=== PATIENT | male | born 1955 ===

== ENCOUNTER 2018-04-12 15:24 | Inpatient (IN) | payer MEDICARE, MEDICAID ==
[~2018-04-12] VITALS: Ht 185.4 cm; Wt 90.3 kg
--- NOTE | 2018-04-12 15:59 | NUR ---
"ER HOLD" for now until further notice per nursing supervisor agency appointments. Per Ellie, [facility] is unable to accept this patient 2/2 [facility] just had 2 recent admissions from ER.
--- NOTE | 2018-04-12 16:40 | NUR ---
CALLED FOR BED AND REPORT. NOT AVAILABLE AT THIS TIME PER [facility] NURSE.
--- NOTE | 2018-04-12 17:38 | NUR ---
CALLED TO GIVE REPORT NURSE NOT AVAILABLE TO TAKE REPORT AT THIS TIME.
--- NOTE | 2018-04-12 17:58 | NUR ---
Pt. admitted to [facility] , under care of Dr. BAJWA Belongs List completed
--- NOTE | 2018-04-12 18:45 | NUR ---
Note radha in ED - 04/12/18 at 1849 by [email or web address] TAKEN BY KUNAL ESPINOSA [facility] [place]. NOTED PATYIENT NOT IN ANY DISTRESS.
--- NOTE | 2018-04-12 18:45 | NUR ---
TAKEN BY KUANL TO U. NOTED PATIENT NOT IN ANY DISTRESS.
[2018-04-12] MEDS ORDERED: MAGNESIUM HYDROXIDE 30 ML LIQUID UDC PO PRN (19:45)
[2018-04-12] MEDS ORDERED: MAG HYDROX/AL HYDROX/SIMETH 30 ML LIQUID UDC PO PRN (19:45)
[2018-04-12 21:10] VITALS: BP 110/47
--- NOTE | 2018-04-12 22:00 | NUR ---
received to care, at 1845, from the emergency room, on a 72 hour hold, for danger to self/others, a transfer, from [facility]. according to the hold, he is allegedly homeless. a bystander on the street called 911, after he was "not acting right". 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 per the chart, he tested positive for methamphetamines, at [facility]. upon arrival, he was asleep, but easy to awaken. he refused body check, physical assessment, or any interview questions, stating, leave me alone- i want to sleep. as of 2199, he remains asleep. no distress noted. will continue to monitor closely. Addendum: 04/13/18 at 0204 by SUZANNE GERARD LVN pt denied SI, or desire to harm self. when asked to contract for safety, he stated, "LEAVE ME ALONE. I WANT TO SLEEP"
--- NOTE | 2018-04-12 22:23 | NUR ---
Patient is a 63 yr old male admitted to Mental Health Unit from [facility] on a 5150 for Danger to self and Danger to others after a psychiatric evaluation was requested when patient presented with aggressive behavior, according to the ER physician reported the patient was displaying flight of ideas as well as delusions of grandeur. Making statements ie: I have 500 million dollars and my father owns [employer]. Patient was also making statements according to medical records threatening to kill someone. Hold began 04/12/18 at 1133 a.m. Patient has a history of schizo-affective disorder no medical history reported and patient did not report home medications or allergies. Patient does not list any relatives to contact. Patient is a smoker according to medical record. Dr. Davis and Dr. Arias aware of admission orders obtained and carried out. On assessment patient agreed to contraband however refused physical assessment and admitting paper work. Patient uncooperative at this time, requested from staff to be allowed to sleep. Patient is appears to be oriented to name when alert however unable to assess further. Patient is unable to deny suicidal ideation or homicidal ideation at this time, will continue to assess as well as monitor for patient, peer, and staff safety.
--- NOTE | 2018-04-12 23:00 | NUR ---
received to care, at start of shift, appearing disheveled, wearing paper scrubs, asleep, but easy to awaken. refused physical assessment, body check, interview, or any questions. only agreed to be checked for contraband, stating, "leave me alone- i want to sleep". as of 2299. he remains asleep. no distress noted. will continue to monitor closely.
--- NOTE | 2018-04-12 23:57 | NUR ---
PATIENT ASLEEP UNABLE TO STATE Addendum: 04/12/18 at 1607 by ABEL JIMENEZ RN Amended: Links added.
--- NOTE | 2018-04-13 06:00 | NUR ---
slept 10.25 hours, total. continues to sleep, but easy to awaken. continues to decline giving any information, stating he wants to sleep. no distress noted.
[2018-04-13 07:01] LABS: CREATININE 0.6 mg/dL (0.6-1.3)
[2018-04-13 07:30] VITALS: BP 96/49
--- NOTE | 2018-04-13 11:27 | NUR ---
RECEIVED Pt IN BED, SLEEPING BUT EASILY AROUSED. NOTED SLIGHT ANXIETY AND AGITATION AFTER NURSE WOKE HIM UP FROM HIS SLEEP. Pt WAS INITIALLY COOPERATIVE WITH ASSESSMENT, ANSWERED SOME QUESTIONS BUT BECAME RESTLESS AND AGITATED MORE QUESTIONS WERE ASKED. Pt DENIES S/I, NO MEDS SCHEDULED FOR THIS MORNING. Pt REFUSED ASSESSMENT OF SKIN FOR ANY SKIN PROBLEMS AND STATED DESIRE TO GO BACK TO SLEEP. EMPHASIZED SAFETY, Pt CONTINUES TO BE ASLEEP WITH NO AGGRESSIVE BEHAVIOR NOTED, NO DISTRESS NOTED.
[2018-04-13] MEDS: OLANZAPINE ZYDIS 5 MG TAB.RAPDIS PO SCH (15:26)
[2018-04-13] MEDS: ACETAMINOPHEN 325 MG TABLET PO PRN (16:12)
[2018-04-13] MEDS: CLONAZEPAM 0.5 MG TABLET PO PRN (16:12)
--- NOTE | 2018-04-13 16:21 | NUR ---
Pt STAYED IN BED ALL DAY UNTIL AROUND 1500 WHEN HE AGREED TO SHOWER. Pt REFUSED TO SIGN CONSENT FOR ZYPREXA 5 MG PO DAILY PRESCRIBED BY PSYCHIATRIST. EVEN AFTER MULTIPLE ENCOURAGEMENT, Pt REFUSED TO SIGN OR TAKE THE MEDICATION. Pt STATED, "THERE IS NOTHING WRONG WITH ME. I DON'T TAKE ANY PSYCHOTROPIC MEDS. I'M NOT CRAZY." Pt BECAME TEARY AND ANXIOUS WHEN SPEAKING ABOUT EVENTS THAT LED TO HIS HOSPITALIZATION. Pt STATED, "I'M NOT CRAZY, MAN. I'M JUST TIRED AND BROKE. THEY TOOK EVERYTHING FROM ME. I HAVE NOTHING LEFT." Pt COMPLAINED ON BODY ACHE THAT'S PREVENTING HIM FROM RESTING PROPERLY. NURSE OFFERED KLONOPIN 0.5 MG PO PRN FOR ANXIETY AND TYLENOL 650 MG PO PRN FOR PAIN. Pt TOOK MEDS AND CALMLY WENT BACK TO SLEEP. WILL CONTINUE TO MONITOR Pt CLOSELY.
[2018-04-13 16:58] VITALS: BP 110/54
[2018-04-13 20:00] VITALS: BP 104/50
--- NOTE | 2018-04-14 06:39 | NUR ---
Patient remained in room all shift no interaction noted. Patient stated however that he would not take psych medication. Slept a total of nine and a half hours. Continue to monitor for safety.
[2018-04-14 07:30] VITALS: BP 131/73
[2018-04-14] MEDS: OLANZAPINE ZYDIS 5 MG TAB.RAPDIS PO SCH (08:31)
[2018-04-14] MEDS: ACETAMINOPHEN 325 MG TABLET PO PRN ×2 (08:35→20:01)
[2018-04-14 15:10] VITALS: BP 93/38
--- NOTE | 2018-04-14 19:30 | NUR ---
Pt lying in bed awake, no s/s of distress noted. Denies pain at this time. Will continue to monitor.
[2018-04-14] MEDS: TEMAZEPAM 7.5 MG CAPSULE PO PRN (20:05)
--- NOTE | 2018-04-14 21:00 | NUR ---
Pt complaints of back pain, requests pain meds and sleeping pill. Given per MD order.
--- NOTE | 2018-04-15 03:30 | NUR ---
Pt got up from bed and went to activity room, saying that the pain and sleeping meds did not help. Sat on a chair and asked for a blanket. Stayed there for a few minutes and went back to his room. RN checked after just a few minutes and found him sound asleep.
--- NOTE | 2018-04-15 06:52 | NUR ---
Pt asleep at this time. No s/s of distress noted. Frequent checks done to ensure safety.
[2018-04-15 07:30] VITALS: BP 126/73
[2018-04-15] MEDS: OLANZAPINE ZYDIS 5 MG TAB.RAPDIS PO SCH ×3 (08:23→16:19)
--- NOTE | 2018-04-15 13:55 | NUR ---
Initial DC Plan: Patient is currently homeless and stated he would like help finding placement upon discharge. He has no primary contacts listed. SW will follow up with MD and patient to discuss most appropriate discharge plans. Patient will be provided a brief substance abuse intervention and provided outpatient referrals. SW will form a safe and proper discharge.
--- NOTE | 2018-04-15 19:10 | NUR ---
GPS: Received pt on bed. Pt complaint of pain.Safety and comfort provided.Will continue to monitor.
[2018-04-15] MEDS: CLONAZEPAM 0.5 MG TABLET PO PRN (19:39)
[2018-04-15] MEDS: ACETAMINOPHEN 325 MG TABLET PO PRN (19:39)
--- NOTE | 2018-04-15 19:50 | NUR ---
Notify Dr. Caputo about the pt complaining that he is still has chronic back pain even if he took Tylenol. ordered Ibuprofen 400 mg po q6h PRN. Will continue to monitor.
--- NOTE | 2018-04-16 06:44 | NUR ---
GPS: PT SHOWERED. NO COMPLAINT OF PAIN. NO ACUTE DISTRESS. 7.30 HOURS OF SLEEP. SAFETY AND COMFORT PROVIDED.
[2018-04-16 07:30] VITALS: BP 113/54
[2018-04-16] MEDS: IBUPROFEN 400 MG TABLET PO PRN ×3 (08:23→21:16)
--- NOTE | 2018-04-16 08:29 | NUR ---
Pt. refused Zyprexa stating he does not take that medication. Ibuprofen give pt stated 09/04 back pain
[2018-04-16] MEDS: OLANZAPINE ZYDIS 5 MG TAB.RAPDIS PO SCH ×2 (09:00→16:17)
[2018-04-16 15:08] VITALS: BP 119/73
[2018-04-16] MEDS: CLONAZEPAM 0.5 MG TABLET PO PRN (19:43)
[2018-04-16 20:23] VITALS: BP 118/74
[2018-04-16] MEDS: TEMAZEPAM 7.5 MG CAPSULE PO PRN (21:31)
[2018-04-17] MEDS: ACETAMINOPHEN 325 MG TABLET PO PRN (00:05)
[2018-04-17] MEDS: CLONAZEPAM 0.5 MG TABLET PO PRN (00:09)
--- NOTE | 2018-04-17 03:18 | NUR ---
GPS: Pt.awake in front of nurses station and starting to get verbally aggressive with staff about his planned discharge for today. Pt.states that he needs to start getting ready and wants his belongings because he's being picked up around 0630. No report was given to nurse about pt.getting discharged at that time and staff told pt.that we don't discharge pts until 11am atleast. Pt.continues to demand for his stuff to be given to him now. Pt.increasingly getting agitated and threatening to harm staff. Unable to be re-directed at his time.
[2018-04-17] MEDS ORDERED: LORAZEPAM 2 MG/1 ML VIAL IM ONE (03:30)
[2018-04-17] MEDS ORDERED: OLANZAPINE 10 MG VIAL IM ONE (03:30)
--- NOTE | 2018-04-17 03:30 | NUR ---
GPS: Pt.continues to be loud,disruptive,hostile and threatening to harm staff at this time. Unable to be re-directed att his time. Refuses to listen to staff's explanation. Yelling,posturing and cursing at staff. notified with new orders,carried out.
--- NOTE | 2018-04-17 03:40 | NUR ---
GPS: Zyprexa 5mg +Ativan 2mg given IM as ordered by MD on pt's right deltoid muscle. Safe environment provided. Fall precautions observed. Will continue to monitor behavior.
--- NOTE | 2018-04-17 04:04 | NUR ---
GPS: Pt.much calmer now. In no acute resp.distress noted. Will continue to monitor. Re-directed prn.
--- NOTE | 2018-04-17 07:26 | NUR ---
received to care,, appearing disheveled,pt said he is leaving today no distress noted. will continue to monitor closely.
[2018-04-17 07:52] LABS: BASOPHILS # (AUTO) 0.1 K/uL (0.0-8.0); BASOPHILS % (AUTO) 0.7 % (0.0-2.0); EOSINOPHILS # (AUTO) 0.3 K/uL (0.0-0.7); EOSINOPHILS % (AUTO) 3.3 % (0.0-7.0); HEMATOCRIT 38.9 % (36.7-47.1); HEMOGLOBIN 13.1 g/dL (12.5-16.3); LYMPHOCYTES # (AUTO) 2.1 K/uL (20.0-40.0); LYMPHOCYTES % (AUTO) 26.1 % (20.5-51.5); MEAN CORPUSCULAR HEMOGLOBIN 31.9 uug (23.8-33.4); MEAN CORPUSCULAR HGB CONC 34 g/dL (32.5-36.3); MEAN CORPUSCULAR VOLUME 94.7 fL (73.0-96.2); MONOCYTES # (AUTO) 0.8 K/uL (2.0-10.0); MONOCYTES % (AUTO) 9.3 % (0.0-11.0); NEUTROPHILS # (AUTO) 4.9 K/uL (1.8-8.9); NEUTROPHILS % (AUTO) 60.6 % (38.5-71.5); PLATELET COUNT (AUTO) 349 K/uL (152-348); RED BLOOD CELL COUNT(AUTO) 4.11 MIL/uL (4.06-5.63)
[2018-04-17] MEDS: OLANZAPINE ZYDIS 5 MG TAB.RAPDIS PO SCH ×3 (08:06→17:00)
[2018-04-17 08:11] VITALS: BP 150/97
[2018-04-17 08:11] LABS: THYROID STIMULATING HORMONE 4.197 mIU/mL (0.358-3.740)
--- NOTE | 2018-04-17 08:14 | NUR ---
DC Note: Patient will be discharged to [facility] [[address], [place] [address]; ] via ambulance. Patient is alert and oriented x3 and denies SI and HI. Patient is aware and agreeable to discharge plans. Patient has no friends or family to notify of discharge plans. Patient will follow up with Dr. Dodson (Strip Mill Operator) and Dr. Perez (Psychiatrist) at the facility. Patient was provided a brief substance abuse intervention for methamphetamine use and provided substance abuse referrals for [facility] [ ], [facility] [ ], and [facility] [ ]. Patient was provided smoking cessation referrals for [employer] 800-LUNGUSA and [employer] [phone]. Addendum: 04/17/18 at 1554 by OCHOA NG BERENICE spoke with Bianca at [facility] [[phone]] who stated patient can no longer go to their facility. BERENICE spoke with Anton at [facility] [[facility] [place] [address]; ] who confirmed they can accept patient today. Patient is aware and agreeable to discharge plans. Patient will follow up with Dr. Caputo (Strip Mill Operator) and Dr. Gramajo (Psychiatrist) at the facility.
[2018-04-17] MEDS: IBUPROFEN 400 MG TABLET PO PRN (08:21)
[2018-04-17 08:28] LABS: BILIRUBIN,TOTAL 0.2 mg/dL (0.2-1.0); CREATININE 0.7 mg/dL (0.6-1.3); MAGNESIUM 1.9 mg/dL (1.8-2.4); PHOSPHOROUS 2.8 mg/dL (2.5-4.9); POTASSIUM 4.5 mmol/L (3.5-5.1); TOTAL PROTEIN, SERUM 7.8 g/dL (6.4-8.2)
[2018-04-17 16:27] VITALS: BP 142/83
--- NOTE | 2018-04-17 19:52 | NUR ---
GPS: Pt.discharged to [facility] as ordered. Left accompanied by 2 ambulance atttendants(Ollie) in stable condition with all his personal belongings. No skin problems identified prior to discharge. Report was given to accepting facility earlier. Health teachings given to pt.prior to discharge.V/S stable.
== END 2018-04-17 19:56 | DRG 885 ==
LOC: ER 15:24 → GPS 18:35
PROVIDERS: ADMIT Psychiatry & Neurology Psychiatry; ATTEND Internal Medicine
DX: F23 Brief psychotic disorder (principal); F32.9 Major depressive disorder, single episode, unspecified; F41.9 Anxiety disorder, unspecified; Z59.0 Homelessness
CPT/HCPCS: 36415; 70450; 83735; 84100; 84443; 85025; 93005; A4663; J2060; J2358